=== PATIENT | male | born 2000 ===

== ENCOUNTER → 2018-03-31 | Outpatient (CLI) | payer SELFPAY ==
[~2018-03-31] MED LIST: ONDA4ODT MM; RXONDA4ODT MM
[2018-04-02 13:06] LABS: TESTOSTERONE, SERUM 461 ng/dL (264-916)
== END | disposition home or self-care (01) ==
LOC: LAB UCHC 09:17 → LAB SHORT 09:17 → EDSTATUS 10:03
PROVIDERS: Nurse Practitioner Family
DX: N52.8 Other male erectile dysfunction (principal)
CPT/HCPCS: 84402; 84403

== ENCOUNTER 2020-11-29 17:35 | Day surgery (SDC) | payer BC, OTHER | END 2020-11-29 18:50 | disposition home or self-care (01) | LOC: ATC 17:35 | DX: U07.1 COVID-19 (principal) | CPT/HCPCS: 96365; Q0243 ==

== ENCOUNTER → 2022-05-29 | Outpatient (CLI) | payer OTHER ==
[2022-05-29 13:20] LABS: Albumin, Blood 3.9 g/dL (3.4-5.0); Bilirubin, Total 0.5 mg/dL (0.1-1.0); Bun/Creatinine Ratio 17.3 (12.0-20.0); Calcium, Blood 9.9 mg/dL (8.5-10.1); Creatinine, Blood 0.98 mg/dL (0.60-1.20); Globulin, Blood 3.8 g/dL (2.2-4.0); Potassium, Blood 4.3 mmol/L (3.5-5.5); Thyroid Stimulating Hormone 1.68 uIU/mL (0.360-4.800); Total Protein, Blood 7.7 g/dL (6.4-8.2)
== END | disposition home or self-care (01) ==
LOC: LAB SHORT 11:06
PROVIDERS: Internal Medicine
DX: R11.2 Nausea with vomiting, unspecified (principal); R53.83 Other fatigue
CPT/HCPCS: 80053; 84403; 84443